=== PATIENT | female | born 1970 | race Caucasian/White ===

== ENCOUNTER 2022-06-01 13:24 | Emergency (ER) | payer OTHER ==
[~2022-06-01] VITALS: Ht 157.5 cm; Wt 77.1 kg
[2022-06-01 13:25] VITALS: BP_SYST 140; BP_SYST 145
--- NOTE | 2022-06-01 13:25 | NUR ---
BROUGHT BACK TO BED #7 AND TRIAGED. REPORT GIVEN TO BERTHA
--- NOTE | 2022-06-01 13:26 | NUR ---
BIB SELF FROM HOME WITH SEVERE UMBILICAL PAIN FOR ONE MONTH WITH THE PAIN BEING SEVERE TODAY. PT ALSO STATES SUCH PAIN RADIATES TO THE RIGHT LOWER QUADRANT. HX - PARTIAL RIGHT MASTECTOMY. HOME MEDS: ESTRADIOL 1 MG PO QDAILY GUAIFENESIN ACETAMINOPHEN CBD OIL WIHT 0% THC EPIPEN PT IS AAXO4, VSS, NAD, PT IS BREATHING EVEN AND UNLABORED ON RA. 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 PT SPEECH IS CLEAR AND CONCISE. SAFETY PRECAUTIONS AND COMFORT MEASURES IN PLACE. PENDING MD LOPEZ AND ORDERS.
--- NOTE | 2022-06-01 13:40 | NUR ---
DR. HENRY AT BEDSIDE EXAMINING THE PT.
[2022-06-01] MEDS ORDERED: ONDANSETRON 4 MG ODT TAB PO ONE (13:45)
[2022-06-01] MEDS ORDERED: EST1 PO (14:09)
[2022-06-01] MEDS ORDERED: ONDA8TAB60 PO (14:37)
[2022-06-01] MEDS ORDERED: HYDR-3917 PO (14:37)
--- NOTE | 2022-06-01 14:41 | NUR ---
PT MEDICALLY CLEARED FOR D/C. D/C INSTRUCTIONS GIVEN TO PT. PT TO FOLLOW-UP WITHIN PCP WITHIN 1-3 DAYS AND TO RETURNTO ED FOR WORSENING S/S. PT VERBALIZED UNDERSTANDING. PT AAXO4, NAD, WRISTBAND REMOVED. PT AMBULATORY WITH STEADY GAIT. PT LEFT ED WITH ALL BELONGINGS.
[2022-06-01 14:46] VITALS: BP_SYST 135
== END 2022-06-01 14:41 | disposition home or self-care (01) ==
LOC: SED 13:24
DX: R10.13 Epigastric pain (principal); R11.0 Nausea; Z88.1 Allergy status to other antibiotic agents; Z88.2 Allergy status to sulfonamides; Z88.6 Allergy status to analgesic agent; Z88.8 Allergy status to other drugs, medicaments and biological substances; Z79.899 Other long term (current) drug therapy
CPT/HCPCS: 99283; 81002; Q0162

== ENCOUNTER 2022-09-23 05:55 | Day surgery (SDC) | payer OTHER ==
[~2022-09-23] VITALS: Ht 157.5 cm; Wt 77.1 kg
[~2022-09-23 05:55] MED LIST: EST1 PO; HYDR-3917 PO; ONDA8TAB60 PO
[2022-09-23 06:45] VITALS: O2SAT 98
[2022-09-23] MEDS ORDERED: CLINDAMYCIN 900 mg/50mL D5W 50 ML IV ONE (08:00)
[2022-09-23] MEDS ORDERED: LR 1,000 ML IV SCH (08:45)
[2022-09-23] MEDS ORDERED: hydrALAZINE HCL 20 MG/ML VIAL IVP PRN (08:45)
[2022-09-23] MEDS ORDERED: MEPERIDINE HCL/PF 25 MG/ML DISP.SYRIN IVP PRN (08:45)
[2022-09-23] MEDS ORDERED: ONDANSETRON HCL 4 MG/2 ML VIAL IVP PRN (08:45)
[2022-09-23] MEDS ORDERED: MIDAZOLAM HCL 2 MG/2 ML VIAL (VERSED) IVP PRN (08:45)
[2022-09-23] MEDS ORDERED: HYDROmorphone 1 MG/ML INJ. CARTRIDGE IVP PRN (08:45)
[2022-09-23] MEDS ORDERED: ACETAMINOPHEN I.V. 1000 MG 100 ML IV ONE (09:31)
[2022-09-23] MEDS ORDERED: MIDAZOLAM HCL 2 MG/2 ML VIAL (VERSED) ONE (10:21)
[2022-09-23] MEDS ORDERED: HYDROmorphone 1 MG/ML INJ. CARTRIDGE ONE ×2 (10:21→11:42)
[2022-09-23] MEDS ORDERED: MEPERIDINE HCL/PF 25 MG/ML DISP.SYRIN ONE (10:22)
[2022-09-23] MEDS ORDERED: hydrALAZINE HCL 20 MG/ML VIAL ONE (10:22)
[2022-09-23] MEDS: HYDROmorphone 1 MG/ML INJ. CARTRIDGE IVP PRN ×3 (10:45→11:45)
[2022-09-23] MEDS ORDERED: ONDANSETRON HCL 4 MG/2 ML VIAL ONE ×2 (10:47→10:54)
[2022-09-23] MEDS ORDERED: BUPIVACAINE /PF 0.25% 30 ML VIAL INJ ONE (10:47)
[2022-09-23] MEDS ORDERED: CLINDAMYCIN PHOSPHATE 900 mg/50mL D5W IV ONE (10:47)
[2022-09-23] MEDS ORDERED: LR 1,000 ML IV.SOLN IV ONE (10:47)
[2022-09-23] MEDS ORDERED: fentaNYL CITRATE/PF 100 MCG/2 ML AMP ONE (10:47)
[2022-09-23] MEDS ORDERED: SUGAMMADEX SODIUM 200 MG/2 ML VIAL IV ONE (10:47)
[2022-09-23] MEDS ORDERED: MIDAZOLAM HCL 5 MG/ML VIAL (VERSED) IV ONE (10:47)
[2022-09-23] MEDS ORDERED: ROCURONIUM BROMIDE 10 MG/ML (ZEMURON) ONE (10:47)
[2022-09-23] MEDS ORDERED: PROPOFOL 200MG/ 20ML VIAL (DIPRIVAN) IV ONE (10:47)
[2022-09-23] MEDS ORDERED: DEXAMETHASONE SOD PHOSPHATE 4 MG/ML VIAL ONE (10:47)
[2022-09-23] MEDS ORDERED: DESFLURANE 15 MIN GAS INH ONE (10:47)
[2022-09-23] MEDS ORDERED: NS IRRIG SOLN 1000 ML IR ONE (10:47)
[2022-09-23 13:28] VITALS: BP_SYST 104; PULSE 61; RESP 16
== END 2022-09-23 14:00 | disposition home or self-care (01) ==
LOC: SDS 05:55 → SMU 05:55 → SDS 14:00
PROVIDERS: ATTEND Surgery
DX: K43.2 Incisional hernia without obstruction or gangrene (principal); K66.0 Peritoneal adhesions (postprocedural) (postinfection); J45.909 Unspecified asthma, uncomplicated; Z88.0 Allergy status to penicillin; Z88.1 Allergy status to other antibiotic agents; E66.9 Obesity, unspecified; G62.9 Polyneuropathy, unspecified; M79.7 Fibromyalgia; Z79.899 Other long term (current) drug therapy
CPT/HCPCS: 87081; 49591; J3490 ×3; J1100; J2250; J3465; J2405; J2704; J3010; J1170; J7120; C1727; C1781; J0131; S2900; E0190; J0360; J2175